=== PATIENT | male | born 1960 | race Caucasian/White ===

== ENCOUNTER → 2022-01-10 | Day surgery (SDC) | payer OTHER ==
[~2022-01-10] MED LIST: ACETAMINOPHEN 1000 MG/100 ML 100 ML IV ONE; ALFUZOSIN HCL10 MG PO; ARMOUR THYROID60 MG PO; DEXAMETHASONE SOD PHOS 10 MG/1 ML VIAL ONE; EPHEDRINE SULFATE INJ 50 MG/ML VIAL ONE; FENTANYL CITRATE/PF 100MCG/2 ML INJ ONE; LEVOFLOXACIN250 MG PO; LIDOCAINE 2%/ EPINEPHRINE 20ML MDV ONE; LIDOCAINE HCL 2% LOCAL INJ 5 ML SDV VIAL INJ ONE; METHOCARBAMOL750 MG PO; MICARDIS40 MG PO; MIDAZOLAM HCL 2 MG/2 ML VIAL ONE; MOBIC7.5 MG PO; ONDANSETRON HCL INJ 2MG/ML 2ML 2 MG/ML VIAL ONE; OXYMETAZOLINE HCL 0.05% NAS 1 SPRAY BTL ONE; POVIDONE IODINE 0.05% 0.05 % ML PO ONE; PROPOFOL IV EMULSION 10 MG/ML 20 ML VIAL ONE; ROCURONIUM BROMIDE 10 MG/ML 5ML VIAL IV ONE; SEVOFLURANE INHAL SOLN 250 ML PEN BTL ONE; SUGAMMADEX SODIUM 200 MG/2 ML VIAL IV ONE; ULTRAM 50MG50 MG PO; UNITHROID25 MCG PO
[2022-01-10 09:10] VITALS: BP 131/81
== END | disposition home or self-care (01) ==
LOC: OR 05:39 → EDSEX 07:00
PROVIDERS: ATTEND Otolaryngology Otolaryngology/Facial Plastic Surgery
DX: K14.0 Glossitis (principal); J35.8 Other chronic diseases of tonsils and adenoids; D86.9 Sarcoidosis, unspecified; E03.9 Hypothyroidism, unspecified; I10 Essential (primary) hypertension; Q61.3 Polycystic kidney, unspecified; R13.10 Dysphagia, unspecified; R06.02 Shortness of breath; Z79.899 Other long term (current) drug therapy
CPT/HCPCS: 31535; 31622; 41113 ×2; 43191; 88305; 93005; J0131; J1100; J2001 ×2; J2250; J2405; J2704; J3010